=== PATIENT | male | born 1995 | race Caucasian/White ===

== ENCOUNTER 2017-08-22 17:48 | Emergency (ER) | payer MEDICAID ==
[~2017-08-22] VITALS: Ht 172.7 cm; Wt 115.7 kg
[2017-08-22 17:48] VITALS: BP_SYST 149
[2017-08-22 19:34] VITALS: BP_SYST 149
== END 2017-08-22 19:34 | disposition home or self-care (01) ==
LOC: SED 17:48
DX: S16.1XXA Strain of muscle, fascia and tendon at neck level, initial encounter (principal); V49.9XXA Car occupant (driver) (passenger) injured in unspecified traffic accident, initial encounter; Y93.89 Activity, other specified; Y92.488 Other paved roadways as the place of occurrence of the external cause; Y99.8 Other external cause status
CPT/HCPCS: 72040-TC; 99284

== ENCOUNTER 2017-11-02 22:21 | Emergency (ER) | payer MEDICAID ==
[~2017-11-02] VITALS: Ht 170.2 cm; Wt 121.1 kg
[2017-11-02 22:25] VITALS: BP_SYST 149
[2017-11-02] MEDS ORDERED: IBUPROFEN 800 MG TABLET PO ONE (22:45)
--- NOTE | 2017-11-03 00:55 | NUR ---
Patient to ER bed 2 to gown for evaluation. Side rails up. Report given to Clovis RAMSAY.
--- NOTE | 2017-11-03 01:00 | NUR ---
Pt has had cough, body aches, and fever since the morning. Will continue to monitor. No distress noted.
--- NOTE | 2017-11-03 01:10 | NUR ---
ER Dr. Balderrama at bedside examining patient.
[2017-11-03] MEDS ORDERED: IBUPROFEN 800 MG TABLET ONE (01:27)
--- NOTE | 2017-11-03 01:40 | NUR ---
Jamaal joshi in ED - 11/03/17 at 0311 by PUSHPA No harman in the ER. Waiting on the floor for medication to administer to patient.
[2017-11-03] MEDS ORDERED: IBUPROFEN 800 MG TABLET PO ONE (02:00)
--- NOTE | 2017-11-03 02:14 | NUR ---
# 20 gauge angiocath placed to L hand. Use of asceptic technique. Opsite placed over site. Blood return noted. Blood for lab drawn from site. Flushed with 10 cc of normal saline. No evidence of infiltration noted. Patient tolerated well.
[2017-11-03] MEDS ORDERED: NACL 0.9% 1,000 ML IV ONE (02:30)
--- NOTE | 2017-11-03 02:30 | NUR ---
Jamaal joshi in EDM - 11/03/17 at 0621 by PUSHPA No harman in the ER. Waiting on the floor for medication to administer to patient.
--- NOTE | 2017-11-03 03:06 | NUR ---
Patient given written and verbal discharge instructions and verbalizes understanding. ER MD discussed with patient the results and treatment provided. Patient in stable condition. ID arm band removed. IV catheter removed intact and dressing applied, no active bleeding. Rx of Tamiflu and Zofran given. Patient educated on pain management and to follow up with PMD. Pain Scale 0/10. Opportunity for questions provided and answered.
[2017-11-03 03:39] VITALS: BP_SYST 98
== END 2017-11-03 03:06 | disposition home or self-care (01) ==
LOC: SED 22:21
DX: J09.X2 Influenza due to identified novel influenza A virus with other respiratory manifestations (principal); J45.909 Unspecified asthma, uncomplicated
CPT/HCPCS: 36415; 86710; 99284; J7030